=== PATIENT | female | born 1970 | race Caucasian/White ===

== ENCOUNTER → 2024-04-22 06:25 | Day surgery (SDC) | payer OTHER, SELFPAY | LOC: GI 06:25 | PROVIDERS: ATTENDING PHYSICIAN Internal Medicine | DX: Z12.11 Encounter for screening for malignant neoplasm of colon (principal); K57.30 Diverticulosis of large intestine without perforation or abscess without bleeding; K63.5 Polyp of colon; R10.13 Epigastric pain; K44.9 Diaphragmatic hernia without obstruction or gangrene; K22.2 Esophageal obstruction; K31.89 Other diseases of stomach and duodenum | CPT/HCPCS: 45385; 43239; 45380; 88305; 88342 ==

== ENCOUNTER 2024-12-25 12:15 | Emergency (ER) | payer OTHER, SELFPAY ==
[2024-12-25 12:24] VITALS: BP 147/90
[2024-12-25 12:40] LABS: % Basophils 0.7 % (0-2); % Eosinophils 3.2 % (0-6); % Immature Granulocytes 0.1 % (0-0.5); % Lymphocytes 45.8 % (20.5-51.1); % Monocytes 10.4 % (1.7-9.3); % Neutrophils 39.8 % (42.2-75.2); Absolute Basophils 0.1 10^3/uL (0-0.2); Absolute Eosinophils 0.2 10^3/uL (0-0.7); Absolute Lymphocytes 3.1 10^3/uL (1.2-3.4); Absolute Monocytes 0.7 10^3/uL (0.1-0.6); Absolute Neutrophils 2.7 10^3/uL (1.4-6.5); Hematocrit 39.5 % (37.0-47.0); Hemoglobin 13.6 g/dL (12.0-16.0); Mean Corp Hgb Conc. 34.4 g/dL (33.0-37.0); Mean Corpuscular Hgb 28.8 pg (27.0-31.0); Mean Corpuscular Volume 83.7 fL (81.0-99.0); Mean Platelet Volume 9.9 fL (7.4-10.4); Nucleated Red Blood Cells % 0 %; Platelet Count 325 10^3/uL (130-400); Red Blood Cell Count 4.72 10^6/uL (4.20-5.40); Red Cell Dist. Width 13.2 % (11.5-14.5); White Blood Cell Count 6.8 10^3/uL (4.8-10.8)
--- NOTE | 2024-12-25 12:51 | EDRN ---
Addendum entered by Tahira Barnes RN 12/25/24 12:53:
Pt went to see her PCP on Monday and was told EKG abnormal w/ PVCs.
Original Note:
Pt states she arrives for chest pain w/ tightness across upper chest that she states she has had for about a week, started last , also had palpitations, dizziness. Nausea. Symptoms coming and going like every 5 minutes states pt.
[2024-12-25 12:56] VITALS: BP 127/88
[2024-12-25 12:57] VITALS: BMI 27.6
[2024-12-25 12:59] LABS: ALT (SGPT) 13 U/L (0-35); AST (SGOT) 26 U/L (14-36); Albumin 4.6 g/dl (3.5-5.0); Alkaline Phosphatase 114 U/L (38-126); Blood Urea Nitrogen 25 mg/dl (7-17); Calcium 10.1 mg/dl (8.4-10.2); Carbon Dioxide 29 mmol/L (22-30); Chloride 102 mmol/L (98-107); Estimated Creatinine Clearance 66 ml/min; Glucose 102 mg/dl (70-99); Potassium 3.6 mmol/L (3.5-5.1); Sodium 140 mmol/L (135-145); Total Bilirubin 0.7 mg/dl (0.2-1.3); eGFR > 60.00
[2024-12-25 13:00] VITALS: BP 104/77
[2024-12-25 13:05] LABS: Troponin I < 0.012 ng/ml
--- NOTE | 2024-12-25 13:07 | EDRN ---
Dr. Botello in room w/ pt at this time.
--- NOTE | 2024-12-25 13:18 | ED.GENMED ---
History of Present Illness
General
Chief Complaint: Chest Pain
Source: patient
Time Seen by Provider: 12/25/24 12:51
History of Present Illness
History of Present Illness:
54-year-old female presents to the emergency room complaining of feeling some chest pressure, dizziness and palpitations. Patient was seen by her primary care doctor recently for the symptoms. She was identified as having frequent PVCs. An
outpatient echo was ordered and a cardiology appointment was made for March. However patient was feeling quite symptomatic today. She cannot identify anything in particular that makes it better or worse. She denies any fever or chills. She
denies any change in medications recently.
Past History
Past History
ED Past Medical History: HTN, Hypercholesterolemia and Other
Social History
Tobacco: Non-smoker
Alcohol: None
Personal:
Living: with family
Employment: Employed
Family History
Family History: Negative Diabetes or Early CAD
Phy Exam
Physical Exam
Physical Exam:
General: Awake, Alert, Oriented X3. No acute distress.
Vitals: unremarkable
Head: Atraumatic
Eyes: Pupils equal, EOMI
Throat: Airway intact, no exudates
Neck: Trachea midline
Lungs: Clear and equal b/l
Heart: Positive ectopy regular rate, no murmurs
Abd: Soft, Nontender, No pulsatile mass
Neuro: Nonfocal
Skin: Warm, dry, no rash
Extremities: pulses equal b/l, no edema
Scores
Heart Score for Chest Pain Patients
STEMI patient?: No
History: Slightly or Non-Suspicious
ECG: Nonspecific Repolarization
Age: >45 - <65 years
Risk Factors: 1 or 2 Risk Factors
Troponin: </= Normal Limit
Heart Score for Chest Pain Patients: 3
Heart Score Risk: 2.5% MACE over next 6 weeks
Course
Orders/Labs/Results
Orders:
Orders
12/25/24 12:16
ECG [Electrocardiogram (*1)] Urgent
Reason for Study: Chest Pain
EKG- Treatment ONCE
12/25/24 12:33
Complete Blood Count/With Diff Urgent
Comprehensive Metabolic Panel Urgent
TSH Reflex To Free T4 Urgent
Troponin I Urgent
12/25/24 13:17
0.9% Sodium Chloride 500 ml [Nss] 500 ml IV BOLUS
12/25/24 13:38
Metoprolol [Lopressor] 25 mg PO NOW STA
12/25/24 13:43
Meclizine [Antivert] 25 mg PO NOW STA
12/25/24 14:13
D-Dimer Urgent
Troponin I Urgent
Abnormal Lab Results
12/25/24
12:33
Absolute Monos (auto) 0.7 H 10^3/uL
(0.1-0.6)
Neutrophils % 39.8 L %
(42.2-75.2)
Monocytes % 10.4 H %
(1.7-9.3)
BUN 25 H mg/dl
(7-17)
Glucose 102 H mg/dl
(70-99)
12/25/24 12:33
12/25/24 12:33
Vital Signs
Initial and Last Documented VS:
Initial Vital Signs
Temp Pulse Resp BP Pulse Ox
97.6 F 82 16 147/90 99
12/25/24 12:24 12/25/24 12:24 12/25/24 12:24 12/25/24 12:24 12/25/24 12:24
Last Documented Vital Signs
Temp Pulse Resp BP Pulse Ox
97.6 F 92 17 106/63 100
12/25/24 12:24 12/25/24 15:15 12/25/24 15:15 12/25/24 15:01 12/25/24 15:01
MDM/Problems Addressed
Differential Diagnosis Includes:
PVCs, dehydration, other dysrhythmia, labyrinthitis
MDM/Problems Addressed:
Patient presents with some dizziness, frequent PVCs and palpitations. While on the monitor the patient's frequent PVCs had dissipated at times. Her symptoms did not seem to change much whether they were there or not leading me to believe her
dizziness is more likely related to BPPV or labyrinthitis. Meclizine seem to help. However the patient continued his the bothered by the frequent PVCs after her dizziness improved therefore we will start a low-dose beta-clarisse, metoprolol 12.5 mg
twice a day. Because she was having some chest tightness we will also put her on the chest pain hotline for [facility]. Based on her medical record number she should be referred to [facility] cardiology but the patient is already made an outpatient
appointment with [facility] so we will stick with this.
*Pulse Oximetry
Patient hypoxic: no
*EKG
Interpreted by ED Provider?: Yes
Comparison EKG: no comparison EKG present
Heart Rate: 87
Rate: normal
Rhythm: sinus
Angie: normal axis
Interval: normal interval
QRS Pattern: normal QRS
Ischemia: no ischemia
*Congressional Assistant Interpretation
Rate: normal
Interpretation: normal
Rhythm: sinus
*Critical Care Note
Total Time (30-74mins, 75-104mins- exclusive of procedures): Not Applicable
ED Attending Note
-
Portions of this chart may have been created with voice recognition software.� Occasional wrong word or��sound alike� substitutions may have occurred due to the inherent limitations of voice recognition software.
Discharge Plan
Departure
Patient Disposition: Home (Routine Discharge)
Date of Disposition: 12/25/24
Time of Disposition: 15:45
Patient with high blood pressure during this ER visit?: No
Condition: Good
Discharge Problem:
Frequent PVCs, Dizziness
Instructions: Ventricular premature beats, Dizziness in adults - ED discharge instructions, Chest Pain [facility] Follow Up
Prescriptions:
New
metoprolol tartrate 25 mg tablet
12.5 mg PO BID Qty: 30 0RF
No Action
acetaminophen [Tylenol Extra Strength] 500 MG tablet
1,000 mg PO Q6HPRN PRN (Reason: pain)
cholecalciferol (vitamin D3) [Vitamin D3] 1,000 UNIT capsule
2,000 unit PO HS
losartan-hydrochlorothiazide 1 EACH tablet
1 ea PO DAILY
ibuprofen 600 MG tablet
600 mg PO Q6HPRN PRN (Reason: mild pain) Qty: 30 0RF
multivitamin Tablet
1 tab PO DAILY
Vitamin D3
50,000 units PO WEEKLY
Referrals:
Ko Venegas CRNP [Family Provider] -
Brandon Amaya MD [Active] -
Activity Restrictions/Additional Instructions:
You can take meclizine every 8 hours for dizziness. I have given you contact information for an Ears, nose and throat doctor if the symptoms persist. I have also sent a prescrition for a low dose of metoprolol to help with the frequent pvc's
Interventions
Interventions:
*Risk Screen - Suicide Last Done: 12/25/24 12:24
*General Assessment Last Done: 12/25/24 12:58
*Neglect/Abuse Screening Last Done: 12/25/24 12:24
*ED- Fall Risk Assessment Last Done: 12/25/24 12:58
*ED COVID-19 Vaccine History Last Done: 12/25/24 12:58
ED- Cardiac Assessment Last Done: 12/25/24 13:03
Discharge Date and Time
Print Language: TUNISIAN
[2024-12-25] MEDS: NSS 500 IV (13:40)
--- NOTE | 2024-12-25 13:42 | EDRN ---
Dr. Botello in room w/ pt and said to hold loprssor as frequent PVCs in triageminy have stopped and pt still w/ chest tightness.
[2024-12-25] MEDS: ANTIVERT 25 MG PO (13:51)
[2024-12-25 14:01] VITALS: BP 113/83
--- NOTE | 2024-12-25 14:16 | EDRN ---
D-dimer and repeat troponin drawn at this time and sent to lab.
--- NOTE | 2024-12-25 14:17 | EDRN ---
Pt stated that when cardiac rhythm started in trigeminy again, the tightness restarted and worse.
[2024-12-25 14:49] LABS: D-Dimer < 0.27 ug/mlFEU (0.00-0.50)
[2024-12-25 14:55] LABS: Troponin I < 0.012 ng/ml
[2024-12-25 15:01] VITALS: BP 106/63
== END 2024-12-25 16:00 | disposition home or self-care (01) ==
LOC: EMR 12:15
PROVIDERS: Emergency Medicine; EMERGENCY PHYSICIAN Emergency Medicine
DX: R42 Dizziness and giddiness (principal); I49.3 Ventricular premature depolarization; R07.89 Other chest pain; I10 Essential (primary) hypertension; E78.00 Pure hypercholesterolemia, unspecified; Z88.1 Allergy status to other antibiotic agents; Z88.5 Allergy status to narcotic agent
CPT/HCPCS: 99284; 96360; 80053; 84443; 84484; 85025; 85379; 93005

== ENCOUNTER → 2025-01-01 16:17 | Outpatient (REF) | payer OTHER, SELFPAY | LOC: HWRCS 16:17 | PROVIDERS: ATTENDING PHYSICIAN Internal Medicine | DX: R42 Dizziness and giddiness (principal) | CPT/HCPCS: 93306 ==

== ENCOUNTER → 2025-01-16 09:52 | Outpatient (REF) | payer OTHER, SELFPAY | LOC: RCS 09:52 | PROVIDERS: ATTENDING PHYSICIAN Internal Medicine Cardiovascular Disease | DX: I49.3 Ventricular premature depolarization (principal); R00.2 Palpitations; I34.1 Nonrheumatic mitral (valve) prolapse; R07.89 Other chest pain | CPT/HCPCS: 93017; 93350 ==